=== PATIENT | female | born 1970 | race American Indian/Alaskan Native ===

== ENCOUNTER 2017-05-19 15:22 | Emergency (ER) | payer OTHER ==
--- NOTE | 2017-05-19 16:33 | C.PDOC ---
History Of Present Illness 46 y/o female presents to the ED with complaints of intermittent frontal headache x2 days. Pt took 2 doses of 400mg ibuprofen without relief. Pain is worse when sitting up. Denies nausea, vomiting, blurred vision, fever, neck stiffness, photophobia or any other complaints. Not the worse headache of her life. Time Seen by Provider: 05/19/17 15:58 Chief Complaint (Nursing): Headache History Per: Patient History/Exam Limitations: no limitations Onset/Duration Of Symptoms: Days, Intermittent Episodes Current Symptoms Are (Timing): Still Present Severity: Moderate Quality: "Pain" Preceeding Symptoms: None Associated Symptoms: denies: Photophobia, Blurred Vision, Nausea, Vomiting Recent travel outside of the [place]: No Past Medical History Reviewed: Historical Data, Nursing Documentation, Vital Signs Vital Signs: Last Vital Signs Temp 98.1 F 05/19/17 17:56 Pulse 88 05/19/17 17:56 Resp 20 05/19/17 17:56 BP 113/70 05/19/17 17:56 Pulse Ox 98 05/19/17 18:04 - Medical History PMH: Anemia, HTN Family History: States: Unknown Family Hx - Social History Hx Tobacco Use: No Hx Alcohol Use: Yes Hx Substance Use: No - Immunization History Hx Tetanus Toxoid Vaccination: No Hx Influenza Vaccination: No Hx Pneumococcal Vaccination: No Review Of Systems Constitutional: Negative for: Fever Eyes: Negative for: Vision Change Gastrointestinal: Negative for: Nausea, Vomiting Musculoskeletal: Positive for: Other (no neck stiffness) Neurological: Positive for: Headache Physical Exam - Physical Exam Appears: Non-toxic, No Acute Distress Skin: Warm, Dry, No Rash Head: Atraumatic, Normacephalic Eye(s): bilateral: Normal Inspection, PERRL, EOMI Throat: Normal Neck: Normal, Normal ROM, Supple Chest: Symmetrical Cardiovascular: Rhythm Regular, No Murmur Respiratory: Normal Breath Sounds, No Rales, No Rhonchi, No Wheezing Gastrointestinal/Abdominal: Soft, No Tenderness Neurological/Psych: Oriented x3, Normal Speech, Normal Cognition, Normal Cranial Nerves, No Cerebellar Signs, Normal Motor, Normal Sensation Gait: Steady ED Course And Treatment O2 Sat by Pulse Oximetry: 98 (room air) Pulse Ox Interpretation: Normal Medical Decision Making Medical Decision Making: pt reports headache resolved. appears comfortable, talking on phone. will d/c Disposition Counseled Patient/Family Regarding: Diagnosis, Need For Followup - Disposition Disposition: HOME/ ROUTINE Disposition Time: 18:02 Condition: IMPROVED Additional Instructions: Follow up with Dr Lao in a few days. Return to ER for any worsening symptoms. 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 - Scribe Statement The provider has reviewed the documentation as recorded by the Scribmarcelo Ulloa All medical record entries made by the Keshia were at my direction and personally dictated by me. I have reviewed the chart and agree that the record accurately reflects my personal performance of the history, physical exam, medical decision making, and the department course for this patient. I have also personally directed, reviewed, and agree with the discharge instructions and disposition.
[2017-05-19 17:57] VITALS: BP 113/70; PULSE 88; RESP 20; TEMP 98.1
[2017-05-19 18:04] VITALS: O2SAT 98
== END 2017-05-19 18:14 | disposition home or self-care (01) ==
LOC: C.ER 15:22
DX: R51 Headache (principal)
CPT/HCPCS: 96372; 99284; J1885